=== PATIENT | male | born 1975 | race Caucasian/White ===

== ENCOUNTER → 2023-03-13 | Outpatient (CLI) | payer OTHER, SELFPAY ==
[2023-03-13 10:14] LABS: AST(SGOT) 20 U/L (15-37); Alanine Aminotransfer ALT/SGPT 29 U/L (16-61); Albumin, Serum 3.6 g/dL (3.2-5.0); Alkaline Phosphatase 60 U/L (45-117); Anion Gap 4 (5-15); BUN 15 mg/dL (7-18); BUN/Creat Ratio 15.5 RATIO (10-20); Calcium,Total 8.5 mg/dL (8.5-10.1); Chloride 108 mmol/L (98-107); Cholesterol 180 mg/dL (200); Creatinine, Serum 0.96 mg/dL (0.70-1.30); EST Glomerular Filtration Rate 88 mL/min (>60); Est Glom Filt Rate - Afr Amer 107 mL/min (>60); Globulin 3.7 g/dL (2.2-4.2); Glucose 99 mg/dL (74-106); High Density Lipoprotein 48 mg/dL; PSA,Total - Annual Screen 0.51 ng/mL (0.00-4.00); Potassium 4.4 mmol/L (3.5-5.1); Protein, Total 7.3 g/dL (6.4-8.2); Sodium Level 141 mmol/L (136-145); Thyroid Stim Hormone (TSH) 2.45 uIU/mL (0.358-3.74); Triglycerides 80 mg/dL; Very Low Density Lipoprotein 16 mg/dL (5-40)
== END | disposition home or self-care (01) ==
PROVIDERS: Visit Provider Family Medicine
DX: E03.9 Hypothyroidism, unspecified (principal); Z13.220 Encounter for screening for lipoid disorders; Z12.5 Encounter for screening for malignant neoplasm of prostate; Z79.899 Other long term (current) drug therapy
CPT/HCPCS: 36415; 80053; 80061; 84153; 84443; G0103

== ENCOUNTER → 2023-12-25 | Outpatient (CLI) | payer OTHER, SELFPAY ==
[2023-12-25 14:16] LABS: Thyroid Stim Hormone (TSH) 0.06 uIU/mL (0.358-3.74)
== END | disposition home or self-care (01) ==
PROVIDERS: Referring Provider Family Medicine; Visit Provider Family Medicine
DX: E03.9 Hypothyroidism, unspecified (principal)
CPT/HCPCS: 36415; 84443

== ENCOUNTER → 2024-04-09 | Outpatient (CLI) | payer OTHER, SELFPAY | END | disposition home or self-care (01) | LOC: LAB 16:06 | PROVIDERS: PCP Family Medicine; Referring Provider Family Medicine; Visit Provider Family Medicine | DX: E03.9 Hypothyroidism, unspecified (principal) | CPT/HCPCS: 36415; 84443 ==

== ENCOUNTER → 2024-11-05 | Outpatient (CLI) | payer OTHER, SELFPAY ==
[2024-11-05 12:45] LABS: ALB/GLOB Ratio 1.5 RATIO (0.9-2.4); AST(SGOT) 20 U/L (<=37); Alanine Aminotransfer ALT/SGPT 17 U/L (<=46); Albumin, Serum 4.3 g/dL (3.5-5.0); Alkaline Phosphatase 53 U/L (40-129); Anion Gap 10 (5-15); BUN 13 mg/dL (4-19); BUN/Creat Ratio 14.6 RATIO (10-20); Carbon Dioxide 25.7 mmol/L (21.0-32.0); Chloride 105 mmol/L (98-108); EST Glomerular Filtration Rate 104 (>60); Globulin 2.8 g/dL (2.2-4.2); Glucose 92 mg/dL (70-99); PSA,Total - Annual Screen 0.59 ng/mL (0.02-4.00); Potassium 4.3 mmol/L (3.3-5.1); Protein, Total 7.1 g/dL (5.9-8.4); Sodium Level 140 mmol/L (133-145); Thyroid Stim Hormone (TSH) 0.103 uIU/mL (0.300-4.200); Total Bilirubin 0.53 mg/dL (0.00-1.30)
[2024-11-05 13:02] LABS: Cholesterol 206 mg/dL (<=200); High Density Lipoprotein 45 mg/dL; Low Density Lipoprotein Calc. 142 mg/dL; Triglycerides 95 mg/dL; Very Low Density Lipoprotein 19 mg/dL (5-40); cholesterol:hdl ratio screen 4.61
--- OUTSIDE RECORDS SUMMARY | 2024-11-05 22:35 | XMS RPT_ITS | CCD ---
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 Name Role Phone Phoenix PA, Aleah Referring Unavailable Care Physician, No Primary Primary Care Unava ilable Phoenix PA, Aleah Attending Unavailable Phoenix PA, Aleah Referring Unavailable Phoenix PA, Aleah Primary Care Unavailable Phoenix PA, Aleah Attending Unavailable FAIRFIELD, ALEAH Admitting Unavailable FAIRFIELD, ALEAH Primary Care Unavailable FAIRFIELD, ALEAH Consulting Unavailable FAIRFIELD, ALEAH Attending Unavailable PROVIDER, UNKNOWN Consulting Unavailable FAIRFIELD, ALEAH Admitting Unavailable FAIRFIELD, ALEAH Primary Care Unavailable FAIRFIELD, ALEAH Consulting Unavailable FAIRFIELD, ALEAH Attending Unavailable PROVIDER, UNKNOWN Consulting Unavailable FAIRFIELD, ALEAH Admitting Unavailable FAIRFIELD, ALEAH Primary Care Unavailable FAIRFIELD, ALEAH Consulting Unavailable FAIRFIELD, ALEAH Attending Unavailable PROVIDER, UNKNOWN Consulting Unavailable FAIRFIELD, ALEAH Primary Care Unavailable FAIRFIELD, ALEAH Consulting Unavailable FAIRFIELD, ALEAH Attending Unavailable FAIRFIELD, ALEAH Admitting Unavailable PROVIDER, UNKNOWN Consulting Unavailable Problems Active Problems Problem Classification Problem Date Documented Da te Episodic/Chronic Thyroid disorders (3 sources) Hypothyroidism, unspecified; Translations: [Hypothyroidism, unspecified] Onset: 10-26-2023 Chronic Past or Other Problems Problem Classification Problem Date Documented Da te Episodic/Chronic Malaise and fatigue (1 source) Other fatigue; Translations: [Other fatigue] Onset: 10-26-2023 Episodic Other aftercare (1 source) 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; Translations: [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] Onset: 10-26-2023 Episodic Other screening for suspected conditions (not mental disorders or infectious disease) (2 sources) Encounter for screening for malignant neoplasm of prostate; Translations: [Encounter for screening for lipoid disorders] Onset: 10-26-2023 Episodic Results Test Name Value Interpretation Reference Range Facility Thyroid Stim Hormone (TSH)on 04-09-2024 TSH 1.020 uIU/mL Normal 0.358-3.740 [facility] Comment on above: Performed By: #### L 501.9520 #### [facility] [address] [place], [place], [address] Thyroid Stim Hormone (TSH)on 12-25-2023 TSH 0.06 uIU/mL Low 0.358-3.74 [facility] Comment on above: Performed By: #### L 501.9520 #### [facility] [address] [place], [place], [address] TESTOST,FR/TOT,MALES BY ED/L C MSMS [CCL]on 10-30-2023 Testosterone [Mass/Vol] 530.4 ng/dL Normal 300.0-890.[address] [facility] Comment on above: Result Comment: This test was developed and its performance characteristics determined by [facility]. It has not been cleared or approved by the [place] Food and Drug Administration. This test was performed in a CLIA certified laboratory and is [place] [address] Galen Boone III, M.D. [id number] Performed By: #### 2 90616 #### [facility],[address] [place] [address] Testosterone,Fr Male 52.8 pg/mL Normal 47.0-244.[address] [facility] Comment on above: Result Comment: INTE RPRETIVE INFORMATION: Testosterone, Free by Dialysis This laboratory reference method for the direct measurement of free testosterone is not recommended when low testosterone concentrations, such as those found in children and cisgender females, are expected. For these individuals, the preferred test is Testosterone, Free (Adult Females, Children, or Individuals on Testosterone-Suppressing Hormone Therapy) ([employer] test code [id number]). For individuals on testosterone hormone therapy, refer to cisgender male reference intervals. No reference intervals have been established for males younger than 18 years or for cisgender females. For a complete set of all established reference intervals, refer to [employer]/Tests/Pub/[id number]. This test was developed and its performance characteristics determined by [facility]. It has not been cleared or approved by the [place] Food and Drug Administration. This test was performed in a CLIA certified laboratory and is intended for clinical purposes. Performed By: [facility] [address] [place], [place] [id number] Coding Support Specialist: Samy Bobo MD, PhD CLIA Number: [id number] Performed By: #### 2 37074 #### [address] [address] ABDULKADIR BY IFA SCREEN [CCL]on ABDULKADIR Titer 1:[address] [facility] Comment on above: Performed By: #### 2 62509 #### [address] [address] Nuclear Ab IF (S) [Titer] Positive Abnormal Negative [facility] Comment on above: Result Comment: Anti -nuclear antibody test is used as an aid in diagnosis of systemic autoimmune diseases. Where positive and clinically warranted, follow-up using disease-specific testing is recommended. Low positive titers are not uncommon with advanced age, certain chronic infections, and malignancies among others. Test methodology: Indirect fluorescence immunoassay (IFA) using HEp-2 cells. Performed By: #### 2 79237 #### [address] [address] RHEUMATOID FACTOR [CCL]on Rheumatoid Factor <10 Normal <16 [facility] Comment on above: Result Comment: [facility] [address] [id number] Galen Boone III, M.D. [id number] Performed By: #### 2 66291 #### [address] [address] T3 ( TRIIODOTHYRONINE) [CCL] on 10-28-2023 T3 118 ng/dL Normal 79-[address] [facility] Comment on above: Result Comment: [facility] [address] [place] [address] Galen Boone III, M.D. [id number] Performed By: #### 2 84022 #### [facility],[address] [place] [address] THYROGLOBULIN AB [CCL]on Thyroglobulin Ab, Serum 1.2 IU/mL Normal <4.[address] [facility] Comment on above: Result Comment: The Thyroglobulin Antibody test was performed using the [employer] DXI paramagnetic particle chemiluminescent immunoassay method. Results obtained with different assay methods or kits cannot be used interchangeably. [facility] [address] [place] [address] Galen Boone III, M.D. [id number] Performed By: #### 2 14705 #### [address] [address] C-REACTIVE PROTEINon 024 CRP 0.10 mg/dl Normal 0.00 - 0.[address] [facility] Comment on above: Performed By: #### 2 61822 #### [address] [address] CBC + DIFFon 10-26-2023 Baso # 0.01 x10EE3/UL Normal 0.00 - 0.10 [facility] Comment on above: Performed By: #### 2 32293 #### [facility],[address] [place] [address] Basophils/100 WBC (Bld) 0.4 % Normal 0.0 - 2.[address] [facility] Comment on above: Performed By: #### 2 15225 #### [address] [address] CBC + DIFF Normal [facility] Comment on above: Result Comment: CBC- COMPLETE BLOOD COUNT Performed By: #### 2 26257 #### [address] [address] EO # 0.12 x10EE3/UL Normal 0.00 - 0.50 [facility] Comment on above: Performed By: #### 2 36430 #### [facility],[address] [place], [place] [address] Eosinophils/100 WBC (Bld) 3.6 % Normal 0.0 - 7.[address] [facility] Comment on above: Performed By: #### 2 01382 #### [facility],[address] [place] [address] Erythrocyte distribution width (RBC) [Ratio] 14.0 % Normal 12.0 - 15.[address] [facility] Comment on above: Performed By: #### 2 88110 #### [facility],[address] [place] [address] Hematocrit (Bld) [Volume fraction] 39.2 % Low 40.0 - 52.[address] [facility] Comment on above: Performed By: #### 2 23892 #### [facility],[address] [place] [address] Hemoglobin (Bld) [Mass/Vol] 13.2 g/dL Normal 13.0 - 17.[address] [facility] Comment on above: Performed By: #### 2 84924 #### [facility],[address] [place], [place] [id number] Lymph # 0.83 x10EE3/UL Normal 0.80 - 2.80 [facility] Comment on above: Performed By: #### 2 49972 #### [facility],[address] [place], [place] [id number] Lymphocytes/100 WBC (Bld) 25.6 % Normal 20.0 - 45.[address] [facility] Comment on above: Performed By: #### 2 40277 #### [facility],[address] [place], [place] [id number] MANUAL DIFF N/A Normal [facility] Comment on above: Performed By: #### 2 25838 #### [facility],[address] [place] [address] MCH (RBC) [Entitic mass] 29 pg Normal 27 - [address] [facility] Comment on above: Performed By: #### 2 87790 #### [facility],[address] [place] [address] MCHC 34 X10 3 Normal 32 - [address] [facility] Comment on above: Performed By: #### 2 30327 #### [facility],[address] [place] [address] MCV (RBC) [Entitic vol] 85 fL Normal 81 - [address] [facility] Comment on above: Performed By: #### 2 50312 #### [facility],[address] [place] [address] Mcpherson # 0.31 x10EE3/UL Normal 0.20 - 1.00 [facility] Comment on above: Performed By: #### 2 30109 #### [facility],[address] [place] [address] MONOS % 9.6 % Normal 0.0 - 10.[address] [facility] Comment on above: Performed By: #### 2 12373 #### [facility],[address] [place] [address] Morphology Morales (Bld) [Interp] N/A Normal [facility] Comment on above: Performed By: #### 2 01552 #### [facility],[address] [place] [address] Neut # 1.98 x10EE3/UL Normal 1.50 - 7.10 [facility] Comment on above: Performed By: #### 2 50638 #### [facility],[address] [place] [address] Neutrophils/100 WBC (Bld) 60.9 % Normal 46.0 - 76.[address] [facility] Comment on above: Performed By: #### 2 43196 #### [facility],[address] [place] [address] PLATELET 220 x10EE3/UL Normal 150 - 450 [facility] Comment on above: Performed By: #### 2 18535 #### [facility],[address] [place] [address] Platelet mean volume (Bld) [Entitic vol] 8.5 fL Normal 6.4 - 10.[address] [facility] Comment on above: Result Comment: AUTO MATED DIFFERENTIAL Performed By: #### 2 55018 #### [facility],[address] [place] [address] RBC 4.59 x 10EE6/UL Normal 4.50 - 6.00 [facility] Comment on above: Performed By: #### 2 03801 #### [facility],[address] [place] [address] WBC 3.3 x 10EE3/UL Low 4.5 - 10.8 [facility] Comment on above: Performed By: #### 2 54224 #### [facility],[address] [place] [address] CMP with eGFRon 10-26-2023 AGE 48 [address] [facility] Comment on above: Performed By: #### 2 19029 #### [facility],[address] [place] [address] Albumin [Mass/Vol] 3.7 g/dL Normal 3.4 - 5.[address] [facility] Comment on above: Performed By: #### 2 56226 #### [facility],[address] [place] [address] Albumin/Globulin [Mass ratio] 1.2 {ratio} Normal 0.9 - 1.[address] [facility] Comment on above: Performed By: #### 2 28876 #### [facility],[address] [place] [address] ALK PHOS 48 U/L Normal 46 - [address] [facility] Comment on above: Performed By: #### 2 52621 #### [facility],[address] [place] [address] ALT [Catalytic activity/Vol] 24 U/L Normal 16 - [address] [facility] Comment on above: Performed By: #### 2 65596 #### [facility],[address] [place] [address] Anion gap [Moles/Vol] 12 mmol/L Normal 10 - [address] [facility] Comment on above: Performed By: #### 2 06578 #### [facility],[address] [place] [address] AST [Catalytic activity/Vol] 19 U/L Normal 15 - [address] [facility] Comment on above: Performed By: #### 2 01946 #### [facility],[address] [place] [address] B/C RATIO 17 ratio Normal 0 - [address] [facility] Comment on above: Performed By: #### 2 83519 #### [facility],[address] [place] [address] Bilirubin [Mass/Vol] 0.3 mg/dL Normal 0.2 - 1.[address] [facility] Comment on above: Performed By: #### 2 80147 #### [facility],[address] [place] [address] Calcium [Mass/Vol] 8.8 mg/dL Normal 8.5 - 10.[address] [facility] Comment on above: Performed By: #### 2 93900 #### [facility],[address] [place] [address] Chloride [Moles/Vol] 107 mmol/L Normal 98 - [address] [facility] Comment on above: Performed By: #### 2 81583 #### [facility],[address] [place] [address] CMP with eGFR Normal [facility] Comment on above: Result Comment: COMP REHENSIVE METABOLIC PANEL Performed By: #### 2 11601 #### [facility],[address] [place] [address] CO2 [Moles/Vol] 27.5 mmol/L Normal 21.0 - 32.0 [facility] Comment on above: Performed By: #### 2 75744 #### [facility],[address] [place] [address] Creatinine [Mass/Vol] 0.81 mg/dL Normal 0.70 - 1.[address] [facility] Comment on above: Performed By: #### 2 65799 #### [facility],[address] [place] [address] GFR/1.73 sq M.predicted among non-blacks MDRD (S/P/Bld) [Vol rate/Area] mL/min/{1.73_m2} Normal 60 - [address] [facility] Comment on above: Performed By: #### 2 87486 #### [facility],[address] [place] [address] Result Comment: ACCO RDING TO THE NATIONAL KIDNEY DISEASE EDUCATION PROGRAM(NKDE), A NORMAL eGFR IS A VALUE GREATER THAN OR EQUAL TO 60 ML/MIN/1.73 SQ METERS. CHRONIC KIDNEY DISEASE: <60mL/MIN/1.73 SQ METERS KIDNEY FAILURE: <15mL/MIN/1.73 SQ METERS THIS TEST SHOULD ONLY BE USED FOR PATIENTS 18 YEARS OF AGE AND OLDER. Globulin (S) [Mass/Vol] 3.2 g/dL Normal 1.5 - 3.[address] [facility] Comment on above: Performed By: #### 2 23240 #### [facility],[address] [place] [address] Glucose [Mass/Vol] 107 mg/dL High 74 - [address] [facility] Comment on above: Performed By: #### 2 00710 #### [facility],[address] [place] [address] Potassium [Moles/Vol] 4.2 mmol/L Normal 3.5 - 5.[address] [facility] Comment on above: Performed By: #### 2 19010 #### [facility],[address] [place] [address] Protein [Mass/Vol] 6.9 g/dL Normal 6.4 - 8.[address] [facility] Comment on above: Performed By: #### 2 52622 #### [facility],[address] [place] [address] Sodium [Moles/Vol] 142 mmol/L Normal 136 - [address] [facility] Comment on above: Performed By: #### 2 75963 #### [facility],[address] [place] [address] Urea nitrogen [Mass/Vol] 14 mg/dL Normal 7 - [address] [facility] Comment on above: Performed By: #### 2 06684 #### [facility],[address] [place] [address] LIPID PROFILEon 10-26-2023 Cholesterol [Mass/Vol] 182 mg/dL Normal 0 - [address] [facility] Comment on above: Performed By: #### 2 23130 #### [facility],[address] [place] [address] Cholesterol in HDL [Mass/Vol] 45 mg/dL Normal 40 - [address] [facility] Comment on above: Performed By: #### 2 05192 #### [facility],[address] [place] [address] Cholesterol in LDL [Mass/Vol] 122 mg/dL Normal 0 - [address] [facility] Comment on above: Performed By: #### 2 50496 #### [facility],[address] [place] [address] Cholesterol.total/C holesterol in HDL [Mass ratio] 4.0 {ratio} Normal 0.0 - 5.[address] [facility] Comment on above: Performed By: #### 2 20218 #### [facility],[address] [place] [address] Lipid 1996 panel Normal [facility] Comment on above: Result Comment: LIPI D PROFILE Performed By: #### 2 09378 #### [facility],[address] [place] [address] Triglyceride [Mass/Vol] 74 mg/dL Normal 0 - [address] [facility] Comment on above: Performed By: #### 2 27243 #### [facility],[address] [place] [address] SEDRATEon 10-26-2023 SEDRATE 7 mm/hr Normal 0 - [address] [facility] Comment on above: Performed By: #### 2 86248 #### [facility],[address] [place] [address] T4-FREE (FREE THYROXINE)on 0 10-26-2023 Free T4 [Mass/Vol] 1.15 ng/dL Normal 0.76 - 1.[address] [facility] Comment on above: Result Comment: P otential of falsely elevated results when biotin concentrations are > 10 ng/mL. Performed By: #### 2 89625 #### [place] [address] TSHon 10-26-2023 TSH Qn 0.01 m[IU]/L Low 0.35 - 3.74 [facility] Comment on above: Result Comment: RESU LT REPEATED Performed By: #### 2 56130 #### [facility],[address] [place], [place] [address] COMPREHENSIVE METABOLIC PANE Mao 06-26-2020 Albumin [Mass/Vol] 4.4 g/dL Normal 3.6-5.1 [facility] Comment on above: Performed By: #### 1 8011, 469, 3460 #### [facility] [address], [address] [place] [address] [employer] Service Manager: Maurilio Sanchez MD Albumin/Globulin [Mass ratio] 1.5 (calc) Normal 1.0-2.5 [facility] Comment on above: Performed By: #### 1 230, , 5363 #### [facility] of [place] [address] [employer]her Dietary Service Manager: Maurilio Sanchez MD ALP [Catalytic activity/Vol] 61 U/L Normal 36-130 [facility] Comment on above: Performed By: #### 1 230, , 5363 #### [facility] of [place] [address] [employer]her Dietary Service Manager: Maurilio Sanchez MD ALT [Catalytic activity/Vol] 36 U/L Normal 9-46 [facility] Comment on above: Performed By: #### 1 230, , 5363 #### [facility] of [place] [address] [employer]her Dietary Service Manager: Maurilio Sanchez MD AST [Catalytic activity/Vol] 28 U/L Normal 10-40 [facility] Comment on above: Performed By: #### 1 230, , 5363 #### [facility] of [place] [address] [employer]her Dietary Service Manager: Maurilio Sanchez MD Bilirubin [Mass/Vol] 0.3 mg/dL Normal 0.2-1.2 [facility] Comment on above: Performed By: #### 1 230, , 5363 #### [facility] of [place] [address] [employer]her Dietary Service Manager: Maurilio Sanchez MD Calcium [Mass/Vol] 9.6 mg/dL Normal 8.6-10.3 [facility] Comment on above: Performed By: #### 1 023, , 5363 #### [facility] of [place] [address] [employer] Dietary Service Manager: Maurilio Sanchez MD Chloride [Moles/Vol] 104 mmol/L Normal 98-110 [facility] Comment on above: Performed By: #### 1 023, , 5363 #### [facility] of [address] [address] [employer] Dietary Service Manager: Maurilio Sanchez MD CO2 [Moles/Vol] 32 mmol/L Normal 20-32 [facility] Comment on above: Performed By: #### 1 230, , 5363 #### [facility] [place] [address] [employer] Dietary Service Manager: Maurilio Sanchez MD Creatinine [Mass/Vol] 1.00 mg/dL Normal 0.60-1.35 [facility] Comment on above: Performed By: #### 1 230, , 5363 #### [facility] [place] [address] [employer] Dietary Service Manager: Maurilio Sanchez MD eGFR NON-AFR. [place]UG[place] 90 mL/min/1.73m2 Normal > OR = 60 [facility] Comment on above: Performed By: #### 1 230, , 5363 #### [facility] [place] [address] [employer] Dietary Service Manager: Maurilio Sanchez MD GFR/1.73 sq M predicted among blacks MDRD (S/P/Bld) [Vol rate/Area] 104 mL/min/{1.73_m2} Normal > OR = 60 [facility] Comment on above: Performed By: #### 1 230, , 5363 #### [facility] [place] [address] [employer] Dietary Service Manager: Maurilio Sanchez MD Globulin (S) [Mass/Vol] 2.9 g/dL (calc) Normal 1.9-3.7 [facility] Comment on above: Performed By: #### 1 230, , 5363 #### [facility] [place] [address] [employer]her Dietary Service Manager: Maurilio Sanchez MD Glucose [Mass/Vol] 93 mg/dL Normal 65-99 [facility] Comment on above: Result Comment: Fasting reference interval Performed By: #### 1 230, , 5363 #### [facility] of [address] [place] [address] [employer] Dietary Service Manager: Maurilio Sanchez MD Potassium [Moles/Vol] 4.5 mmol/L Normal 3.5-5.3 [facility] Comment on above: Performed By: #### 1 230, , 5363 #### [facility] [place] [address] [employer] Dietary Service Manager: Maurilio Sanchez MD Protein [Mass/Vol] 7.3 g/dL Normal 6.1-8.1 [facility] Comment on above: Performed By: #### 1 230, , 5363 #### [facility] [place] [address] [employer]her Dietary Service Manager: Maurilio Sanchez MD Sodium [Moles/Vol] 139 mmol/L Normal 135-146 [facility] Comment on above: Performed By: #### 1 230, , 5363 #### [facility] [place] [address] [employer]her Dietary Service Manager: Maurilio Sanchez MD Urea nitrogen [Mass/Vol] 18 mg/dL Normal 7-25 [facility] Comment on above: Performed By: #### 1 230, , 5363 #### [facility] [place] [address] [employer] Dietary Service Manager: Maurilio Sanchez MD Urea nitrogen/Creatinine [Mass ratio] NOT APPLICABLE Normal 6-22 [facility] Comment on above: Performed By: #### 1 230, , 5363 #### [facility] [place] [address] [employer] Dietary Service Manager: Maurilio Sanchez MD PSA, TOTALon 06-26-2020 PSA, TOTAL 0.4 ng/mL Normal < OR = 4.0 [facility] Comment on above: Result Comment: The total PSA value from this assay system is standardized against the WHO standard. The test result will be approximately 20% lower when compared to the equimolar-standardized total PSA (Shawn Ramsey). Comparison of serial PSA results should be interpreted with this fact in mind. This test was performed using the Siemens chemiluminescent method. Values obtained from different assay methods cannot be used interchangeably. PSA levels, regardless of value, should not be interpreted as absolute evidence of the presence or absence of disease. Performed By: #### 1 0231, 899, 5363 #### [facility] [address] [place] [address], [address] [employer]ary Service Manager: Maurilio Sanchez MD TSHon 06-26-2020 TSH Qn 1.78 m[IU]/L Normal 0.40-4.50 [facility] Comment on above: Performed By: #### 1 0231, 899, 5363 #### [facility] [address], [address] [place] [address] [employer] Dietary Service Manager: Maurilio Sanchez MD SARS CoV 2 RNA(COVID 19), [facility] 03-29-2020 SARS CoV 2 RNA NOT DETECTED Normal NOT DETECTED [facility] Comment on above: Order Comment: FASTI NG: UNKNOWN Result Comment: A Not Detected (negative) test result for this test means that SARS- CoV-2 RNA was not present in the specimen above the limit of detection. A negative result does not rule out the possibility of COVID-19 and should not be used as the sole basis for treatment or patient management decisions. If COVID-19 is still suspected, based on exposure history together with other clinical findings, re-testing should be considered in consultation with public health authorities. Laboratory test results should always be considered in the context of clinical observations and epidemiological data in making a final diagnosis and patient management decisions. Please review the Fact Sheets and FDA authorized labeling available for health care providers and patients using the following websites: [email or web address]/fact-sheet 2 [email or web address]/ fact-sheet2 This test has been authorized by the FDA under an Emergency Use Authorization (EUA) for use by authorized laboratories. Due to the current public health emergency, [facility] is receiving a high volume of samples from a wide variety of swabs and media for COVID-19 testing. In order to serve patients during this public health crisis, samples from appropriate clinical sources are being tested. Negative test results derived from specimens received in non-commercially manufactured viral collection and transport media, or in media and sample collection kits not yet authorized by FDA for COVID-19 testing should be cautiously evaluated and the patient potentially subjected to extra precautions such as additional clinical monitoring, including collection of an additional specimen. Methodology: Nucleic Acid Amplification Test (NAAT) includes RT-PCR or TMA Additional information about COVID-19 can be found at the [employer] website: [email or web address]. Performed By: #### 3 [id number] #### [facility]-[address], [address] [place] [address] [employer] Manager: Maurilio Sanchez MD TSHon 12-06-2019 TSH Qn 0.73 m[IU]/L Normal 0.40-4.50 [facility] Comment on above: Performed By: #### 8 99 #### [facility] [address] [employer] Manager: Maurilio Sanchez MD COMPREHENSIVE METABOLIC PANE [facility] 07-28-2019 Albumin [Mass/Vol] 4.6 g/dL Normal 3.6-5.1 [facility] Comment on above: Performed By: #### 1 230, 48, 3345 #### [facility] [address] [employer] Service Manager: Maurilio Sanchez MD Albumin/Globulin [Mass ratio] 1.6 (calc) Normal 1.0-2.5 [facility] Comment on above: Performed By: #### 1 230, 04, 0858 #### [facility] [address] [employer] Manager: Maurilio Sanchez MD ALP [Catalytic activity/Vol] 62 U/L Normal 36-130 [facility] Comment on above: Performed By: #### 1 230, 71, 0509 #### [facility] [address] [employer] Manager: Maurilio Sanchez MD ALT [Catalytic activity/Vol] 37 U/L Normal 9-46 [facility] Comment on above: Performed By: #### 1 230, , 5363 #### [facility] , [address] [place] [address] [employer]ary Service Manager: Maurilio Sanchez MD AST [Catalytic activity/Vol] 32 U/L Normal 10-40 [facility] Comment on above: Performed By: #### 1 230, , 5363 #### [facility]-[address], [address] [place] [address] [employer] Service Manager: Maurilio Sanchez MD Bilirubin [Mass/Vol] 0.3 mg/dL Normal 0.2-1.2 [facility] Comment on above: Performed By: #### 1 230, , 5363 #### [facility]-[address], [address] [place] [address] [employer] Service Manager: Maurilio Sanchez MD Calcium [Mass/Vol] 9.8 mg/dL Normal 8.6-10.3 [facility] Comment on above: Performed By: #### 1 230, , 5363 #### [facility] [address], [address] [place] [address] [employer] Service Manager: Maurilio Sanchez MD Chloride [Moles/Vol] 102 mmol/L Normal 98-110 [facility] Comment on above: Performed By: #### 1 230, , 5363 #### [facility] , [address] [place] [address] [employer] Dietary Service Manager: Maurilio Sanchez MD CO2 [Moles/Vol] 28 mmol/L Normal 20-32 [facility] Comment on above: Performed By: #### 1 230, , 5363 #### [facility] [address] , [address] [place] [address] [employer] Manager: Maurilio Sanchez MD Creatinine [Mass/Vol] 1.02 mg/dL Normal 0.60-1.35 [facility] Comment on above: Performed By: #### 1 230, , 5363 #### [facility] [address], [address] [place] [address] [employer] Service Manager: Maurilio Sanchez MD eGFR NON-AFR. [place] 88 mL/min/1.73m2 Normal > OR = 60 [facility] Comment on above: Performed By: #### 1 230, , 5363 #### [facility]-[address], [address] [place] [address] [employer]ary Service Manager: Maurilio Sanchez MD GFR/1.73 sq M predicted among blacks MDRD (S/P/Bld) [Vol rate/Area] 102 mL/min/{1.73_m2} Normal > OR = 60 [facility] Comment on above: Performed By: #### 1 230, , 5363 #### [facility]-[address], [address] [place] [address] [employer] Service Manager: Maurilio Sanchez MD Globulin (S) [Mass/Vol] 2.9 g/dL (calc) Normal 1.9-3.7 [facility] Comment on above: Performed By: #### 1 230, , 5363 #### [facility]-[address], [address] [place] [address] [employer] Service Manager: Maurilio Sanchez MD Glucose [Mass/Vol] 80 mg/dL Normal 65-99 [facility] Comment on above: Result Comment: Fasting reference interval Performed By: #### 1 230, , 5363 #### [facility]-[address], [address] [place] [address] [employer] Service Manager: Maurilio Sanchez MD Potassium [Moles/Vol] 4.2 mmol/L Normal 3.5-5.3 [facility] Comment on above: Performed By: #### 1 230, , 5363 #### [facility]-[address], [address] [place] [address] [employer] Dietary Service Manager: Maurilio Sanchez MD Protein [Mass/Vol] 7.5 g/dL Normal 6.1-8.1 [facility] Comment on above: Performed By: #### 1 230, , 5363 #### [facility]-[address], [address] [place] [address] [employer] Dietary Service Manager: Maurilio Sanchez MD Sodium [Moles/Vol] 136 mmol/L Normal 135-146 [facility] Comment on above: Performed By: #### 1 230, , 56 #### [facility]-[address], [address] [place] [address] [employer] Dietary Service Manager: Maurilio Sanchez MD Urea nitrogen [Mass/Vol] 20 mg/dL Normal 7-25 [facility] Comment on above: Performed By: #### 1 230, , 63 #### [facility]-[address], [address] [place] [address] [employer] Dietary Service Manager: Maurilio Sanchez MD Urea nitrogen/Creatinine [Mass ratio] NOT APPLICABLE Normal 6-22 [facility] Comment on above: Performed By: #### 1 230, , 63 #### [facility]-[address], [address] [place] [address] [employer] Dietary Service Manager: Maurilio Sanchez MD PSA, TOTALon 07-28-2019 PSA, TOTAL 0.8 ng/mL Normal < OR = 4.0 [facility] Comment on above: Result Comment: The total PSA value from this assay system is standardized against the WHO standard. The test result will be approximately 20% lower when compared to the equimolar-standardized total PSA (Shawn Ramsey). Comparison of serial PSA results should be interpreted with this fact in mind. This test was performed using the Siemens chemiluminescent method. Values obtained from different assay methods cannot be used interchangeably. PSA levels, regardless of value, should not be interpreted as absolute evidence of the presence or absence of disease. Performed By: #### 1 023, , 76 #### [facility]-[address], [address] [place] [address] [employer] Service Manager: Maurilio Sanchez MD TSHon 07-28-2019 TSH Qn 0.35 m[IU]/L Low 0.40-4.50 [facility] Comment on above: Performed By: #### 1 230, , 40 #### [facility]-[address], [address] [place] [address] [employer]ary Service Manager: Maurilio Sanchez MD Encounters Encounter Date Encounter Type Care Provider Facility Start: 09-06-2024 ambulatory [facility] [place] Start: 09-06-2024 ambulatory [facility] Start: 04-09-2024 End: 04-09-2024 ambulatory [facility] [place] Facility:[facility] Start: 12-25-2023 End: 12-25-2023 ambulatory Aleah Phoenix [place] Facility:[facility] Start: 10-26-2023 End: 10-26-2023 ambulatory [facility] Procedures Date Procedure Procedure Detail Performing Clinician Start: 10-26-2023 PSA screening [facility] Comment on above: Performed By: #### 2 [id number] #### [facility],[address] [place] [address] Payers Date Payer Category Payer Private Health Insurance 2 [id number] 2023 Self-pay 1975 Unknown [id number] 2.16.8 [id number] 1975 Unknown [id number] 2.16.8 [id number] 1974 Unknown [id number] 2.16.8 [id number] 1975 Unknown [id number] 2.16.8 [id number] Private Health Insurance 2 [id number] Unknown [id number] 2.16.8 [id number] Unknown [id number] 2.16.8 [id number] Summary Purpose Family History No Family History Records FoundNo Family History Records FoundNo Family History Records Found Advance Directives No Advanced Directives Records FoundNo Advanced Directives Records FoundNo Advanced Directives Records Found Additional Source Comments (unrecognized sect ion and content) No Status Records FoundNo Status Records FoundNo Status Records Found INFORMATION SOURCE (unrecogn ized section and content) DATE CREATED AUTHOR 06/26/2020 [facility] DATE CREATED AUTHOR AUTHOR'S ORGANIZ ATION 05/11/2024 [facility] DATE CREATED AUTHOR AUTHOR'S ORGANIZ ATION 09/08/2024 [facility] FOR RECORDS PERTAINING TO PATIENTS WHO ARE OR HAVE BEEN ENROLLED IN A CHEMICAL DEPENDENCY/SUBSTANCEABUSE PROGRAM, SOME INFORMATION MAY BE OMITTED. This clinical summary was aggregated from multiple sources. Caution should be exercised in using it in the provision of clinical care. This summary normalizes information from multiple sources, and as a consequence, information in this document may materially change the coding, format and clinical context of patient data. In addition, data may be omitted in some cases. CLINICAL DECISIONS SHOULD BE BASED ON THE PRIMARY CLINICAL RECORDS. [employer] [facility]. provides no warranty or guarantee of the accuracy or completeness of information in this document.
== END | disposition home or self-care (01) ==
PROVIDERS: PCP Family Medicine; Referring Provider Family Medicine; Visit Provider Family Medicine
DX: Z12.5 Encounter for screening for malignant neoplasm of prostate (principal); Z13.6 Encounter for screening for cardiovascular disorders; E03.9 Hypothyroidism, unspecified
CPT/HCPCS: 36415; 80053; 80061; 84153; 84443; G0103